=== PATIENT | male | born 1995 | race African-American/Black ===

== ENCOUNTER 2016-09-07 09:50 | Emergency (ER) | payer OTHER, MEDICAID ==
[~2016-09-07] VITALS: Ht 188 cm; Wt 127.0 kg
[2016-09-07 09:52] VITALS: BP 139/88; PULSE 102; RESP 20; TEMP 99.2; O2SAT 97
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
[2016-09-07] MEDS ORDERED: DILA30CA PO (10:09)
[2016-09-07] MEDS ORDERED: ORPHENADRINE INJ 60 MG/2 ML AMP IM ONE (10:15)
[2016-09-07] MEDS ORDERED: KETOROLAC TROMETHAMINE 60 MG/2 ML (IM) VIAL IM ONE (10:15)
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
[2016-09-07] MEDS ORDERED: NAPR500 PO (11:17)
[2016-09-07] MEDS ORDERED: ROBA500T PO (11:17)
== END 2016-09-07 11:50 | disposition home or self-care (01) ==
LOC: NEPK 09:50
DX: R07.89 Other chest pain (principal); Z79.899 Other long term (current) drug therapy
CPT/HCPCS: 71020; 96372; 99284; J1885; J2360